=== PATIENT | female | born 2000 | race African-American/Black ===

== ENCOUNTER 2024-10-13 22:08 | Emergency (ER) | payer MEDICAID ==
[~2024-10-13] VITALS: Ht 165.1 cm; Wt 77.0 kg
[2024-10-13 22:14] VITALS: TEMP 36.8; O2SAT 100
[2024-10-13 23:22] LABS: BASOPHILS % 1.4 % (0.0-2.0); EOSINOPHILS % 1.9 % (0.0-5.0); HEMATOCRIT. 36.4 % (36.0-48.0); HEMOGLOBIN. 12.5 g/dL (12.0-16.0); LYMPHOCYTES % 43.8 % (20.0-50.0); MEAN PLATELET VOLUME 10.6 fl (7.4-10.4); MONOCYTES % 10.3 % (2.0-8.0); NEUTROPHILS % 42.6 % (40.0-76.0); PLATELET 259 x1000/uL (130-400); RED BLOOD CELL COUNT 3.95 mill/uL (4.2-5.4); RED CELL DISTRIBUTION WIDTH 12.7 % (11.6-14.6)
[2024-10-13] MEDS: ONDANSETRON 4MG ODT PO ONE (23:28)
[2024-10-13] MEDS: ACETAMINOPHEN 500MG TABLET PO ONE (23:28)
[2024-10-13 23:40] LABS: CREATININE 0.7 mg/dL (0.6-1.0); UREA NITROGEN BLOOD 9 mg/dL (9-23)
[2024-10-13 23:42] LABS: ASPARTATE AMINOTRANSFERASE 18 IU/L (<34); BILIRUBIN DIRECT < 0.1 mg/dL (<=3.0); BILIRUBIN TOTAL 0.2 mg/dL (0.1-1.0); PROTEIN TOTAL 7.4 g/dL (6.0-8.3)
[2024-10-13 23:45] LABS: TROPONIN I HIGH SENSITIVITY < 4 ng/L (3.0-34)
[2024-10-13 23:59] VITALS: BP 100/50; PULSE 66; RESP 16; O2SAT 100
[2024-10-14 00:14] LABS: HCG SCREEN NEGATIVE
[2024-10-14] MEDS ORDERED: NAPR-1176 MT (01:00)
== END 2024-10-14 01:41 | disposition home or self-care (01) ==
LOC: ER 22:08
DX: R07.89 Other chest pain (principal); M54.50 Low back pain, unspecified
CPT/HCPCS: 99284; 71045; 80076; 80048; 84703; 85025; 84484; 36415; 93005; Q0162